=== PATIENT | female | born 1970 | race Caucasian/White ===

== ENCOUNTER 2020-05-30 09:56 | Outpatient (CLI) | payer OTHER, SELFPAY ==
--- NOTE | 2020-05-30 10:26 | EST_ITS ---
Patient Info Name: Marie Castro Age: 49 years : 1970 Gender: Female Ht: 60 in Wt: 104 lbs BSA: 1.41 m2 Exam Date: 05/30/2020 10:36 AM Exam Location: [facility] Stress Patient Status: Outpatient Admit Date: 05/30/2020 Staff Ordering Physician: Lorne Singh DO Attending Provider: oLrne Singh DO Exercise Technologist: Rebecca Mancera RDCS Exercise Physician: Devonte Segal DO Exam Type: CA stress test treadmill Study Info Indications R07.9 - Chest pain, unspecified A treadmill exercise stress test was performed. Summary 1. 1. Negative Miky exercise stress test for ischemic ST changes by ECG criteria. 2. 2. Good functional capacity, achieving 12 METs of workload. 3. 3. Appropriate HR response to exercise. 4. 4. Appropriate HR recovery at 1 minute post exercise. 5. 5. Baseline hypertension. 6. 6. No imaging with stress testing. 7. 7. Patient informed of the above results. Protocol: Miky Stress ECG Details Stage: REST Duration (min): 6 min : 15 sec Speed (mph): 0.0 Grade (%): 0 HR (bpm): 59 SBP (mmHg): 162 DBP (mmHg): 96 METS: --- Stage: REST Duration (min): 16 min : 57 sec Speed (mph): 0.0 Grade (%): 0 HR (bpm): 68 SBP (mmHg): 162 DBP (mmHg): 96 METS: --- Stage: STAGE 1 Duration (min): 1 min : 0 sec Speed (mph): 1.7 Grade (%): 10 HR (bpm): 87 SBP (mmHg): 162 DBP (mmHg): 96 METS: --- Stage: STAGE 1 Duration (min): 2 min : 0 sec Speed (mph): 1.7 Grade (%): 10 HR (bpm): 95 SBP (mmHg): 162 DBP (mmHg): 96 METS: --- Stage: STAGE 1 Duration (min): 3 min : 0 sec Speed (mph): 1.7 Grade (%): 10 HR (bpm): 94 SBP (mmHg): 157 DBP (mmHg): 85 METS: --- Stage: STAGE 2 Duration (min): 1 min : 0 sec Speed (mph): 2.5 Grade (%): 12 HR (bpm): 105 SBP (mmHg): 157 DBP (mmHg): 85 METS: --- Stage: STAGE 2 Duration (min): 2 min : 0 sec Speed (mph): 2.5 Grade (%): 12 HR (bpm): 113 SBP (mmHg): 144 DBP (mmHg): 82 METS: --- Stage: STAGE 2 Duration (min): 3 min : 0 sec Speed (mph): 2.5 Grade (%): 12 HR (bpm): 117 SBP (mmHg): 144 DBP (mmHg): 82 METS: --- Stage: STAGE 3 Duration (min): 1 min : 0 sec Speed (mph): 3.4 Grade (%): 14 HR (bpm): 126 SBP (mmHg): 174 DBP (mmHg): 93 METS: --- Stage: STAGE 3 Duration (min): 2 min : 0 sec Speed (mph): 3.4 Grade (%): 14 HR (bpm): 127 SBP (mmHg): 174 DBP (mmHg): 93 METS: --- Stage: STAGE 3 Duration (min): 3 min : 0 sec Speed (mph): 3.4 Grade (%): 14 HR (bpm): 130 SBP (mmHg): 103 DBP (mmHg): 85 METS: --- Stage: STAGE 4 Duration (min): 1 min : 0 sec Speed (mph): 4.2 Grade (%): 16 HR (bpm): 156 SBP (mmHg): 103 DBP (mmHg): 55 METS: --- Stage: STAGE 4 Duration (min)
== END 2020-05-30 09:57 | disposition home or self-care (01) ==
PROVIDERS: PCP Internal Medicine; Visit Provider Internal Medicine
DX: E78.00 Pure hypercholesterolemia, unspecified (principal); R07.9 Chest pain, unspecified; I10 Essential (primary) hypertension
CPT/HCPCS: 93017

== ENCOUNTER → 2022-01-19 02:18 | Outpatient (CLI) | payer OTHER, SELFPAY ==
[2022-01-19 11:31] LABS: SARS-CoV-2 RNA PCR Negative
== END ==
PROVIDERS: PCP Internal Medicine; Visit Provider Internal Medicine Gastroenterology
DX: Z01.812 Encounter for preprocedural laboratory examination (principal); Z20.822 Contact with and (suspected) exposure to COVID-19
CPT/HCPCS: C9803; U0003; U0005

== ENCOUNTER 2022-01-19 08:35 | Outpatient (CLI) | payer OTHER, SELFPAY ==
--- NOTE | ~2022-01-19 | XR_ITS ---
XR lumbar spine min 4V DATE: 01/19/2022 08:58 INDICATION: Low back pain TECHNIQUE: AP, lateral, bilateral oblique views, coned lateral lumbosacral view COMPARISON: None FINDINGS: Normal alignment lumbar spine. There is moderate prominent degenerative disease at L2-3 and L3-4 and mild degenerative disease at th e remaining lumbosacral interspaces. No fracture or bone destruction is evident. Included lower thoracic and lumbar pedicles are intact. There is severe thinning or possible interruption of the pars interarticularis at L5 bilaterally, but no spondylolisthesis. The sacroiliac joints appear normal. Status post cholecystectomy. IMPRESSION: Degenerative disc disease, most pronounced at L2-3 and L3-4 Very thin or interrupted pars interarticularis at L5 Reviewed, dictated and finalized at location A.
[2022-01-19 09:50] LABS: Erythrocyte Sedimentation Rate 17 mm/hr (0-20)
== END 2022-01-19 08:36 | disposition home or self-care (01) ==
LOC: ANHIMG 08:38
PROVIDERS: PCP Internal Medicine; Visit Provider Internal Medicine
DX: M54.50 Low back pain, unspecified (principal); M51.36 Other intervertebral disc degeneration, lumbar region
CPT/HCPCS: 36415; 72110; 85652

== ENCOUNTER 2022-01-22 00:59 | Day surgery (SDC) | payer OTHER, SELFPAY ==
[2022-01-08 15:03] VITALS: BMI 20.6
[2022-01-22 06:40] VITALS: BP 159/95; PULSE 68; RESP 18; TEMP 36.2; O2SAT 100; BMI 21.2
--- NOTE | 2022-01-22 06:56 | WPDANESEPPF ---
Anes - Initial Pre Proc Eval Procedure: Operation Date: 01/22/22 08:00 Proposed Procedures p Screening Colonoscopy - Maurice Hilario MD Date/Time: 01/22/22 06:56 Surgeon: Maurice Hilario MD Pre Op Diagnosis: neoplasm screening Patient Data Age: 51 Gender: F Height: 1.52 m Weight: 49.2 kg Last Vital Signs Temp 36.2 C L 01/22/22 06:40 Pulse 68 01/22/22 06:40 Resp 18 01/22/22 06:40 BP 159/95 H 01/22/22 06:40 Pulse Ox 100 01/22/22 06:40 Allergies Allergy/AdvReac Type Severity Reaction Status Date / Time albuterol Allergy Intermediate INCREASED Verified 01/22/22 06:45 HEART RATE, DIFFICULTY BREATHING hydrocodone Allergy Intermediate RASH AND Verified 01/22/22 06:45 NAUSEA morphine Allergy Intermediate ITCHING Verified 01/22/22 06:45 AND VOMITING fish oil Allergy Mild Bladder Verified 01/22/22 06:45 pain acetaminophen [From Vicodin] Allergy Shortness Verified 01/22/22 06:45 of breath azithromycin Allergy Nausea Verified 01/22/22 06:45 [From Zithromax Z-Meir] estrogens, conjugated Allergy Pancreatiti Verified 01/22/22 06:45 [From Premarin] s Contrast Media Allergy Severe SEVERE Uncoded 01/08/20 13:07 PAIN; HAD SEVERE PANCREATITIS;BREATHING DIFFICULTY Home Medications Medication Instructions Recorded Confirmed Type aspirin 81 mg tablet,delayed 81 mg PO DAILY 01/08/20 01/22/22 History release cannabidiol 100 mg/mL oral solution mg PO BID PRN ml 01/08/20 12/01/21 History diphenhydramine HCl 25 mg capsule 25 mg PO Q6H PRN 04/16/20 01/22/22 History duloxetine 30 mg capsule,delayed 30 mg PO DAILY #90 cap 10/10/21 01/22/22 Rx release lovastatin 40 mg tablet 40 mg PO QPM #90 tablet 10/20/21 01/22/22 Rx ibuprofen See Rx Instructions .ROUTE 01/08/22 01/22/22 History .COMPLEX PRN diazepam 2 mg tablet 2 mg PO BID PRN #60 tablet 01/21/22 01/22/22 Rx Patient hx anesthesia problems: none Family hx anesthesia problems: other (slow to awaken) Results Review: All pre-operative results and documents have been reviewed as part of the pre-operative evaluation. [facility] Past Medical History Medical History Anxiety Asthma Breast lump in female Degenerative disc disease GERD (gastroesophageal reflux disease) Hypercholesterolemia Hypertension Hypothyroidism Interstitial cystitis Lumbago MDD (major depressive disorder) Migraine Miscarriage Recurrent UTI (urinary tract infection) Seasonal allergies Tremors of nervous system Surgical History Surgical History H/O: hysterectomy Family History Family History Father Cerebrovascular accident Carcinoma of colon DVT (deep venous thrombosis) Mother Family history of kidney disease Family history of lung cancer Acute myocardial infarction Breast cancer Atrial fibrillation Daughter CHF (congestive heart failure) Other FH: kidney cancer Social History Social History Years smoked: 30 Smoking status: Former smoker Tobacco type: cigarettes and e-cigarettes/vaping Smoking end date: 09/27/10 Alcohol intake: never Substance use: current Substance use type: marijuana Living arrangements: with family Spiritual care concerns: No Anes - Eval Final PreProcedure Day of Procedure 01/22/22 06:56 Patient weight: normal Heart: regular rate and rhythm Lungs: decreased breath sounds Airway: Mallampati scale class II Neurological: alert and oriented Last oral intake: >/= 8 hours ASA classification: III Emergent: no Anesthetic plan: proceed Anesthesia type and monitoring: general GIVS and standard monitoring Results Review: All pre-operative results and documents have been reviewed as part of the pre-operative evalua
[2022-01-22] MEDS: LACTATED RINGERS 1,000 ML 150 ML IV CONT (06:59)
--- NOTE | 2022-01-22 07:17 | WPDGICN ---
Assessment and Plan Assessment and plan (1) Family hx of colon cancer: Code(s): Z80.0 - Family history of malignant neoplasm of digestive organs Status: Acute Assessment and Plan: Patient has a strong family history of colon cancer with cancer in both her father brother in his aunt. Plan is for surveillance colonoscopy now and at 3-4 year intervals in the future. (2) History of colon polyps: Code(s): Z86.010 - Personal history of colonic polyps Status: Acute Assessment and Plan: Patient has had colon polyps on previous colonoscopy. Most recent colonoscopy 2019. Plan is for surveillance colonoscopy now in every 3-4 years in the future. GI Consult Note Consult date/time: 01/22/22 07:17 HPI: Marie Castro is a 51 year old female Presents for screening colonoscopy. Patient has a strong family history of colon cancer. Her father brother and paternal aunt all of had colon cancer. Patient reports her last colonoscopy in 2019 revealed colon polyps as well. Patient presents today for screening colonoscopy. She reports that her current weight appetite and bowel movements are normal. She denies abdominal pain. She has had no bleeding. Her weight remains stable. Review of Systems Review of Systems: All systems reviewed & are unremarkable except as noted in HPI and below PMFSH Past Medical History Medical History Anxiety Asthma Breast lump in female Degenerative disc disease GERD (gastroesophageal reflux disease) Hypercholesterolemia Hypertension Hypothyroidism Interstitial cystitis Lumbago MDD (major depressive disorder) Migraine Miscarriage Recurrent UTI (urinary tract infection) Seasonal allergies Tremors of nervous system Surgical History Surgical History H/O: hysterectomy Family History Family History Father Cerebrovascular accident Carcinoma of colon DVT (deep venous thrombosis) Mother Family history of kidney disease Family history of lung cancer Acute myocardial infarction Breast cancer Atrial fibrillation Daughter CHF (congestive heart failure) Other FH: kidney cancer Social History Social History Years smoked: 30 Smoking status: Former smoker Tobacco type: cigarettes and e-cigarettes/vaping Smoking end date: 09/27/10 Alcohol intake: never Substance use: current Substance use type: marijuana Living arrangements: with family Spiritual care concerns: No Meds Home Medications and Allergies Home Medications Medication Instructions Recorded Confirmed Type aspirin 81 mg tablet,delayed 81 mg PO DAILY 01/08/20 01/22/22 History release cannabidiol 100 mg/mL oral solution mg PO BID PRN ml 01/08/20 12/01/21 History diphenhydramine HCl 25 mg capsule 25 mg PO Q6H PRN 04/16/20 01/22/22 History duloxetine 30 mg capsule,delayed 30 mg PO DAILY #90 cap 10/10/21 01/22/22 Rx release lovastatin 40 mg tablet 40 mg PO QPM #90 tablet 10/20/21 01/22/22 Rx ibuprofen See Rx Instructions .ROUTE 01/08/22 01/22/22 History .COMPLEX PRN diazepam 2 mg tablet 2 mg PO BID PRN #60 tablet 01/21/22 01/22/22 Rx Allergies Allergy/AdvReac Type Severity Reaction Status Date / Time albuterol Allergy Intermediate INCREASED Verified 01/22/22 06:45 HEART RATE, DIFFICULTY BREATHING hydrocodone Allergy Intermediate RASH AND Verified 01/22/22 06:45 NAUSEA morphine Allergy Intermediate ITCHING Verified 01/22/22 06:45 AND VOMITING fish oil Allergy Mild Bladder Verified 01/22/22 06:45 pain acetaminophen [From Vicodin] Allergy Shortness Verified 01/22/22 06:45 of breath azithromycin Allergy Nausea Verified 01/22/22 06:45 [From Zithromax Z-Meir] estrogens, conjugated Aller
[2022-01-22] MEDS: SIMETHICONE ORAL SUSPENSION 20 MG/0.3 ML 30 ML BOTTLE 0.6 ML IRRIGATION (08:12)
[2022-01-22 08:26] VITALS: BP 139/84; PULSE 75; RESP 17; O2SAT 100
[2022-01-22 08:36] VITALS: BP 144/87; PULSE 65; RESP 25; O2SAT 100
[2022-01-22 08:46] VITALS: BP 150/93; PULSE 63; RESP 21; O2SAT 100
== END 2022-01-22 08:51 | disposition home or self-care (01) ==
PROVIDERS: PCP Internal Medicine; Visit Provider Internal Medicine Gastroenterology
PROC: 0DJD8ZZ Inspection of Lower Intestinal Tract, Via Natural or Artificial Opening Endoscopic (ICD-10-PCS; CPT 45378; principal; 2022-01-22 08:00)
DX: Z12.11 Encounter for screening for malignant neoplasm of colon (principal); K64.8 Other hemorrhoids; Z86.010 Personal history of colon polyps; Z80.0 Family history of malignant neoplasm of digestive organs; I10 Essential (primary) hypertension; E78.00 Pure hypercholesterolemia, unspecified; E03.9 Hypothyroidism, unspecified; K21.9 Gastro-esophageal reflux disease without esophagitis; F41.8 Other specified anxiety disorders; J45.909 Unspecified asthma, uncomplicated; F12.90 Cannabis use, unspecified, uncomplicated; Z87.891 Personal history of nicotine dependence; Z79.82 Long term (current) use of aspirin
CPT/HCPCS: 45378; J2704; J7120

== ENCOUNTER 2022-05-08 12:23 | Outpatient (CLI) | payer OTHER, SELFPAY ==
[2022-05-08 18:52] LABS: Basophils Absolute Auto 0.1 K/mm3 (0.0-0.1); Basophils Percent Auto 1.2 % (0.2-1.2); Eosinophils Absolute Auto 0.1 K/mm3 (0-0.3); Eosinophils Percent Auto 1.7 % (0-4.4); Hematocrit 42.3 % (37.0-47.0); Hemoglobin 13.7 g/dL (12.0-15.0); Immature Granulocyte Absolute 0.01 K/mm3 (0.00-0.031); Immature Granulocyte Percent A 0.2 % (0-0.5); Lymphocytes Absolute Auto 2.74 K/mm3 (0.9-3.2); Lymphocytes Percent Auto 45.6 % (18.3-44.2); Mean Corpuscular HGB Conc 32.4 g/dl (32-36); Mean Corpuscular Hemoglobin 28.9 pg (26-34); Mean Corpuscular Volume 89.2 fl (80-100); Mean Platelet Volume 11.2 fl (7.4-10.4); Monocytes Absolute Auto 0.4 K/mm3 (0.1-0.6); Monocytes Percent Auto 7.3 % (2.6-8.5); Neutrophils Absolute Auto 2.7 K/mm3 (1.3-6.7); Platelet Count Result 228 k/mm3 (150-375); Red Blood Count 4.74 M/mm3 (4.2-5.4); Red Cell Distribution Width 13.2 % (11.5-14.5)
[2022-05-08 19:34] LABS: Vitamin D 25 Hydroxy 59.8 ng/mL
[2022-05-08 19:38] LABS: Alanine Aminotransferase 16 U/L (6-35); Albumin Level 4.8 g/dL (3.5-5.1); Alkaline Phosphatase 59 U/L (38-126); Anion Gap 6 mmol/L (8-16); Aspartate Amino Transferase 39 U/L (14-36); Bilirubin,Total 0.8 mg/dL (0.2-1.3); Blood Urea Nitrogen 16 mg/dL (7-17); Calcium 9.7 mg/dL (8.4-10.2); Carbon Dioxide 29 mmol/L (22-30); Chloride 100 mmol/L (98-107); Cholesterol 228 mg/dL (0-200); Estimated Glomerular Filt Rate > 60; Glucose 95 mg/dL (65-110); HDL Direct 38 mg/dL; Potassium 4.6 mmol/L (3.4-5.0); Sodium 135 mmol/L (137-145); Triglycerides 199 mg/dL (<150)
[2022-05-08 19:50] LABS: LDL Cholesterol Direct 105 mg/dL
== END 2022-05-08 12:24 | disposition home or self-care (01) ==
LOC: ANHGOSHLAB 12:24
PROVIDERS: PCP Internal Medicine; Visit Provider Clinical Nurse Specialist
DX: Z13.228 Encounter for screening for other metabolic disorders (principal); E55.9 Vitamin D deficiency, unspecified; F41.9 Anxiety disorder, unspecified; E78.00 Pure hypercholesterolemia, unspecified
CPT/HCPCS: 36415; 80053; 80061; 82306; 84443; 85025

== ENCOUNTER 2022-05-12 13:54 | Outpatient (CLI) | payer OTHER, SELFPAY ==
--- NOTE | ~2022-05-12 | MR_ITS ---
EXAMINATION: MR brain/brain stem wo/w con DATE: 05/12/2022 15:20 INDICATION: Headache. TECHNIQUE: Magnetic resonance imaging (MRI) of the brain and brainstem was performed without and with 9 mL MultiHance intravenous contrast. COMPARISON: None. FINDINGS: There are scattered areas of nonspecific increased T2-weighted signal intensity in the cere bral white matter, which is within normal limits for the patient's age. There is no intracranial hemo rrhage, acute infarction, or abnormal intracranial mass lesion. The ventricles are normal in size. Th e paranasal sinuses are clear. The orbits are normal. The mastoid air cells are normal. IMPRESSION: 1. Normal aging brain. Reviewed, dictated and finalized at location A. IMPRESSION: 1. Normal aging brain.
--- NOTE | ~2022-05-12 | US_ITS ---
US thyroid INDICATION: Dysphagia TECHNIQUE: Real-time sonographic images of the thyroid gland were obtained. COMPARISON: No prior studies for comparison. FINDINGS: The right thyroid lobe measures 4 x 1.1 x 1.2 cm. The left thyroid lobe measures 3.5 x 1 x 1.4 cm. There is normal echotexture and echogenicity throughout the thyroid gland. No discrete nodul es identified. Normal vascular flow is present. IMPRESSION: 1. Normal thyroid without discrete nodule or abnormal vascularity. Reviewed, dictated and finalized at location B.
== END 2022-05-12 13:55 | disposition home or self-care (01) ==
PROVIDERS: PCP Internal Medicine; Visit Provider Clinical Nurse Specialist
DX: E03.9 Hypothyroidism, unspecified (principal); R13.10 Dysphagia, unspecified; R51.9 Headache, unspecified
CPT/HCPCS: 70553; 76536; A9577

== ENCOUNTER 2022-06-02 00:50 | Day surgery (SDC) | payer OTHER, SELFPAY ==
[2022-05-18 15:46] VITALS: BMI 20.6
[2022-06-02 09:14] VITALS: BP 157/66; PULSE 60; RESP 16; TEMP 36.5; O2SAT 99; BMI 21.9
[2022-06-02] MEDS: LACTATED RINGERS 1,000 ML 150 ML IV CONT (09:23)
--- NOTE | 2022-06-02 09:34 | WPDANESEPPF ---
Anes - Initial Pre Proc Eval Procedure: Operation Date: 06/02/22 10:30 Proposed Procedures p Esophagogastroduodenoscopy - Maurice Hilario MD Date/Time: 06/02/22 09:34 Surgeon: Maurice Hilario MD Pre Op Diagnosis: dysphagia Patient Data Age: 51 Gender: F Height: 1.52 m Weight: 51 kg Last Vital Signs Temp 36.5 C 06/02/22 09:14 Pulse 60 06/02/22 09:14 Resp 16 06/02/22 09:14 BP 157/66 H 06/02/22 09:14 Pulse Ox 99 06/02/22 09:14 O2 Del Method Room Air 06/02/22 09:14 Allergies Allergy/AdvReac Type Severity Reaction Status Date / Time Iodinated Contrast Media Allergy Severe Difficulty Verified 06/02/22 09:13 Breathing albuterol Allergy Intermediate INCREASED Verified 06/02/22 09:13 HEART RATE, DIFFICULTY BREATHING hydrocodone Allergy Intermediate RASH AND Verified 06/02/22 09:13 NAUSEA morphine Allergy Intermediate ITCHING Verified 06/02/22 09:13 AND VOMITING fish oil Allergy Mild Bladder Verified 06/02/22 09:13 pain acetaminophen [From Vicodin] Allergy Shortness Verified 06/02/22 09:13 of breath azithromycin Allergy Nausea Verified 06/02/22 09:13 [From Zithromax Z-Meir] estrogens, conjugated Allergy Pancreatiti Verified 06/02/22 09:13 [From Premarin] s Contrast Media Allergy Severe SEVERE Uncoded 06/02/22 09:13 PAIN; HAD SEVERE PANCREATITIS;BREATHING DIFFICULTY Home Medications Medication Instructions Recorded Confirmed Type aspirin 81 mg tablet,delayed 81 mg PO DAILY 01/08/20 06/02/22 History release (Adult Low Dose Aspirin) cannabidiol 100 mg/mL oral solution 10 mg PO BID PRN Pain 01/08/20 06/02/22 History diphenhydramine HCl 25 mg capsule 25 mg PO Q6H PRN Sleep 04/16/20 06/02/22 History (Benadryl) diazepam 2 mg tablet 1 mg PO BID PRN anxiety #30 tabs 04/16/22 06/02/22 Rx ibuprofen 800 mg tablet 800 mg .Route .qd PRN Pain #30 tabs 04/16/22 06/02/22 Rx duloxetine 30 mg capsule,delayed 30 mg PO DAILY #90 caps 05/03/22 06/02/22 Rx release lovastatin 40 mg tablet 40 mg PO QPM #90 tabs 05/03/22 06/02/22 Rx Patient hx anesthesia problems: none Family hx anesthesia problems: none Results Review: All pre-operative results and documents have been reviewed as part of the pre-operative evaluation. [facility] Past Medical History Medical History Anxiety Asthma Breast lump in female Degenerative disc disease GERD (gastroesophageal reflux disease) Hypercholesterolemia Hypertension Hypothyroidism Interstitial cystitis Lumbago MDD (major depressive disorder) Migraine Miscarriage Recurrent UTI (urinary tract infection) Seasonal allergies Tremors of nervous system Surgical History Surgical History H/O: hysterectomy Family History Family History Father Cerebrovascular accident Carcinoma of colon DVT (deep venous thrombosis) Mother Family history of kidney disease Family history of lung cancer Acute myocardial infarction Breast cancer Atrial fibrillation Daughter CHF (congestive heart failure) Other FH: kidney cancer Social History Social History Years smoked: 30 Smoking status: Former smoker Tobacco type: e-cigarettes/vaping Smoking end date: 09/27/10 Alcohol intake: never Substance use: current Substance use type: marijuana Other substance usage details: medical marijuana for pain Living arrangements: with family Spiritual care concerns: No Anes - Eval Final PreProcedure Day of Procedure 06/02/22 09:34 Patient weight: normal Heart: regular rate and rhythm Lungs: clear to auscultation Airway: Mallampati scale class II Neurological: alert and oriented ASA classification: III Emergent: no Anesthetic plan: proceed Anesthesia
--- NOTE | 2022-06-02 09:47 | PM.IMHP ---
H&P: HPI History of Present Illness Date/Time: 06/02/22 09:47 Chief Complaint: Dysphagia Narrative: this is a 51-year-old white female patient presents for EGD. She reports difficulty swallowing for last 2-3 months. Sometimes will choke on foods. This occurs with both solids and liquids. She reports a rather chronic epigastric pain that has developed after having had pancreatitis in the past. She states been present for 10 years. She previously tried omeprazole but felt this made the symptoms worse. She states most other medicines including milk of magnesia and Pepto-Bismol also intensified this pain therefore she does not take any significant antacids. It is uncertain whether these make an benefit. She denies any weight loss or bleeding. An EGD is requested because of difficulty swallowing. Review of Systems Review of Systems: Review of systems noncontributory. [facility] Past Medical History Medical History Anxiety Asthma Breast lump in female Degenerative disc disease GERD (gastroesophageal reflux disease) Hypercholesterolemia Hypertension Hypothyroidism Interstitial cystitis Lumbago MDD (major depressive disorder) Migraine Miscarriage Recurrent UTI (urinary tract infection) Seasonal allergies Tremors of nervous system Surgical History Surgical History H/O: hysterectomy Family History Family History Father Cerebrovascular accident Carcinoma of colon DVT (deep venous thrombosis) Mother Family history of kidney disease Family history of lung cancer Acute myocardial infarction Breast cancer Atrial fibrillation Daughter CHF (congestive heart failure) Other FH: kidney cancer Social History Social History Years smoked: 30 Smoking status: Former smoker Tobacco type: e-cigarettes/vaping Smoking end date: 09/27/10 Alcohol intake: never Substance use: current Substance use type: marijuana Other substance usage details: medical marijuana for pain Living arrangements: with family Spiritual care concerns: No Meds Home Medications and Allergies Home Medications Medication Instructions Recorded Confirmed Type aspirin 81 mg tablet,delayed 81 mg PO DAILY 01/08/20 06/02/22 History release (Adult Low Dose Aspirin) cannabidiol 100 mg/mL oral solution 10 mg PO BID PRN Pain 01/08/20 06/02/22 History diphenhydramine HCl 25 mg capsule 25 mg PO Q6H PRN Sleep 04/16/20 06/02/22 History (Benadryl) diazepam 2 mg tablet 1 mg PO BID PRN anxiety #30 tabs 04/16/22 06/02/22 Rx ibuprofen 800 mg tablet 800 mg .Route .qd PRN Pain #30 tabs 04/16/22 06/02/22 Rx duloxetine 30 mg capsule,delayed 30 mg PO DAILY #90 caps 05/03/22 06/02/22 Rx release lovastatin 40 mg tablet 40 mg PO QPM #90 tabs 05/03/22 06/02/22 Rx Allergies Allergy/AdvReac Type Severity Reaction Status Date / Time Iodinated Contrast Media Allergy Severe Difficulty Verified 06/02/22 09:13 Breathing albuterol Allergy Intermediate INCREASED Verified 06/02/22 09:13 HEART RATE, DIFFICULTY BREATHING hydrocodone Allergy Intermediate RASH AND Verified 06/02/22 09:13 NAUSEA morphine Allergy Intermediate ITCHING Verified 06/02/22 09:13 AND VOMITING fish oil Allergy Mild Bladder Verified 06/02/22 09:13 pain acetaminophen [From Vicodin] Allergy Shortness Verified 06/02/22 09:13 of breath azithromycin Allergy Nausea Verified 06/02/22 09:13 [From Zithromax Z-Meir] estrogens, conjugated Allergy Pancreatiti Verified 06/02/22 09:13 [From Premarin] s Contrast Media Allergy Severe SEVERE Uncoded 06/02/22 09:13 PAIN; HAD SEVERE PANCREATITIS;BREATHING DIFFICULTY Vital Signs Vital Signs - 24 hr 06/02/22 09:14 Temperature 97.7 F
[2022-06-02 10:09] VITALS: BP 130/87; PULSE 64; RESP 20; O2SAT 100
[2022-06-02 10:19] VITALS: BP 138/95; PULSE 62; RESP 20; O2SAT 100
[2022-06-02 10:29] VITALS: BP 138/88; PULSE 55; RESP 20; O2SAT 99
== END 2022-06-02 10:36 | disposition home or self-care (01) ==
PROVIDERS: PCP Internal Medicine; Visit Provider Internal Medicine Gastroenterology
PROC: 0DJ08ZZ Inspection of Upper Intestinal Tract, Via Natural or Artificial Opening Endoscopic (ICD-10-PCS; CPT 43235; principal; 2022-06-02 10:30)
DX: R13.19 Other dysphagia (principal); R10.13 Epigastric pain; F41.9 Anxiety disorder, unspecified; J45.909 Unspecified asthma, uncomplicated; K21.9 Gastro-esophageal reflux disease without esophagitis; I10 Essential (primary) hypertension; F32.9 Major depressive disorder, single episode, unspecified; Z87.891 Personal history of nicotine dependence; F12.90 Cannabis use, unspecified, uncomplicated; Z79.82 Long term (current) use of aspirin; N30.10 Interstitial cystitis (chronic) without hematuria; Z80.0 Family history of malignant neoplasm of digestive organs; E03.9 Hypothyroidism, unspecified; R25.1 Tremor, unspecified
CPT/HCPCS: 43239; 43450; 87081; J2704; J7120

== ENCOUNTER 2022-09-30 09:47 | Outpatient (CLI) | payer OTHER, SELFPAY ==
--- NOTE | ~2022-09-30 | XR_ITS ---
Lumbosacral Spine: AP and lateral views Clinical History: Pain Findings: The normal lordotic curve is maintained. The vertebral bodies and posterior elements are i ntact. The intervertebral disc spaces are preserved. Mild facet joint degenerative changes are prese nt throughout the lumbar spine. The sacroiliac joints are normally outlined. Impression: Mild degenerative change, as above. Reviewed, dictated and finalized at location . LE APPLICATION ENGINEER Impression: Mild degenerative change, as above.
--- NOTE | ~2022-09-30 | XR_ITS ---
Left Hand Technique: PA and lateral views were obtained. Clinical History: Thumb pain Findings: No acute fracture or dislocation is seen. Osseous alignment is anatomic. Joint spaces are p reserved. Soft tissues are unremarkable. Impression: Unremarkable left hand. Reviewed, dictated and finalized at location M. RY ENGRAVER Impression: Unremarkable left hand.
[2022-09-30 18:58] LABS: Alanine Aminotransferase 20 U/L (6-35); Albumin Level 4.7 g/dL (3.5-5.1); Alkaline Phosphatase 60 U/L (38-126); Anion Gap 7 mmol/L (8-16); Aspartate Amino Transferase 24 U/L (14-36); Bilirubin,Total 0.3 mg/dL (0.2-1.3); Blood Urea Nitrogen 15 mg/dL (7-17); Calcium 9.3 mg/dL (8.4-10.2); Carbon Dioxide 28 mmol/L (22-30); Chloride 102 mmol/L (98-107); Estimated Glomerular Filt Rate > 60; Glucose 81 mg/dL (65-110); Potassium 4.5 mmol/L (3.4-5.0); Sodium 137 mmol/L (137-145)
[2022-09-30 19:49] LABS: Basophils Absolute Auto 0.1 K/mm3 (0.0-0.1); Basophils Percent Auto 1.1 % (0.2-1.2); Eosinophils Absolute Auto 0.2 K/mm3 (0-0.3); Eosinophils Percent Auto 3.4 % (0-4.4); Hematocrit 42.9 % (37.0-47.0); Immature Granulocyte Absolute 0.01 K/mm3 (0.00-0.031); Immature Granulocyte Percent A 0.2 % (0-0.5); Lymphocytes Absolute Auto 2.57 K/mm3 (0.9-3.2); Lymphocytes Percent Auto 41.9 % (18.3-44.2); Mean Corpuscular HGB Conc 32.6 g/dl (32-36); Mean Corpuscular Hemoglobin 28.7 pg (26-34); Mean Corpuscular Volume 88.1 fl (80-100); Monocytes Absolute Auto 0.5 K/mm3 (0.1-0.6); Neutrophils Absolute Auto 2.8 K/mm3 (1.3-6.7); Neutrophils Percent Auto 45.4 % (45.5-73.1); Platelet Count Result 230 k/mm3 (150-375); Red Blood Count 4.87 M/mm3 (4.2-5.4); Red Cell Distribution Width 12.8 % (11.5-14.5); White Blood Count 6.1 K/mm3 (4.5-10.0)
[2022-09-30 20:35] LABS: Rheumatoid Factor < 8.6 IU/ML (<12)
[2022-09-30 21:03] LABS: Hemoglobin A1C 5.5 % (<5.7)
[2022-09-30 21:15] LABS: Erythrocyte Sedimentation Rate 12 mm/hr (0-20)
[2022-10-04 09:07] LABS: ANA Cascade Screen Negative (Negative)
== END 2022-09-30 09:48 | disposition home or self-care (01) ==
PROVIDERS: PCP Internal Medicine; Visit Provider Clinical Nurse Specialist
DX: M79.643 Pain in unspecified hand (principal); M48.061 Spinal stenosis, lumbar region without neurogenic claudication; M35.3 Polymyalgia rheumatica; E78.00 Pure hypercholesterolemia, unspecified; R73.9 Hyperglycemia, unspecified
CPT/HCPCS: 36415; 72100; 73120; 80053; 83036; 85025; 85652; 86038; 86430

== ENCOUNTER 2022-11-13 09:02 | Outpatient (CLI) | payer OTHER, SELFPAY ==
--- NOTE | ~2022-11-13 | MR_ITS ---
EXAMINATION: MR lumbar spine wo con DATE: 11/13/2022 10:52 INDICATION: Low back pain. TECHNIQUE: Magnetic resonance imaging (MRI) of the lumbar spine was performed without intravenous con trast. Sequences included sagittal T2-weighted FSE, sagittal T2-weighted FS FSE, sagittal T1-weighted FSE, and axial T2-weighted FSE. COMPARISON: Lumbar spine radiographs 09/30/22 FINDINGS: Bone alignment is normal. Vertebral body heights are normal. There is mildly decreased disc height at L3-L4 and L5-S1. The distal spinal cord signal intensity is normal. The conus medullaris i s at L1. The following disc levels are specifically discussed: L1-L2: The disc does not extend beyond the endplate margin. There is mild bilateral facet joint osteo arthritis. There is no neural foraminal stenosis. There is no central canal stenosis. L2-L3: The disc is bulging and has an annular fissure. There is mild bilateral facet joint osteoarthr itis. There is mild bilateral neural foraminal stenosis. There is mild central canal stenosis. L3-L4: The disc is bulging and has an annular fissure. There is moderate bilateral facet joint osteoa rthritis. There is mild bilateral neural foraminal stenosis. There is mild central canal stenosis. L4-L5: The disc is bulging. There is severe bilateral facet joint osteoarthritis. There is mild left neural foraminal stenosis. There is no central canal stenosis. L5-S1: The disc is bulging. There is moderate bilateral facet joint osteoarthritis. There is mild carlene ateral neural foraminal stenosis. There is mild central canal stenosis. IMPRESSION: 1. Mild lumbar spondylosis. Reviewed, dictated and finalized at location A. MANAGER IMPRESSION: 1. Mild lumbar spondylosis.
--- NOTE | 2022-11-13 11:00 | NEURO_ITS ---
Impression: # Complains of inability to bend thumbs at the joint intermittently. # Subtle sensory Carpal Tunnel Syndrome, right more than left. # Normal needle/EMG exam with no neurogenic changes. Motor Nerve Conduction Upper Extremities Median Nerve Conduction Velocity (m/sec) Terminal Latency (msec) Response Voltage(mV) Elbow-Wrist Wrist Elbow Wrist Right 55 2.9 5 3 Left 56 3.4 3 2 Ulnar Nerve Conduction Velocity (m/sec) Terminal Latency (msec) Response Voltage(mV) Above Elbow Below Elbow Wrist Above Elbow Below Elbow Wrist Right 54 2.3 5 6 Left 56 2.2 5 7 F-Wave Latency Median (ms) Ulnar (ms) Right 27.7 26.4 Left 27.8 26.7 Sensory Nerve Conduction Upper Extremities Median Nerve Stimulation Terminal Latency (msec) Wrist/Digit Response Voltage (uV) Wrist Right 4.3/4.7 10/6 Left 3.4/3.5 36/34 Ulnar Nerve Stimulation Terminal Latency (msec) Wrist/Digit Response Voltage (uV) Wrist Right 2.1 36 Left 2.2 56 Radial Nerve Terminal Latency (msec) Response Voltage(mV) Right 2.3 21 Left 2.0 35 Left Right Muscles Examined Fibrillation Fasciculation Scarcity Voltage Duration Left Right Left Right Left Right Left Right Left Right Deltoid Biceps X X Brachioradialis Triceps X X Pronator Teres X X Ext Indicis X X Ext Digitorum X X Abd Poll Brev X X 1st Dorsal Interosseus Paraspinals MTDD
== END 2022-11-13 09:03 | disposition home or self-care (01) ==
LOC: ANHNEURO 09:04
PROVIDERS: PCP Internal Medicine; Visit Provider Clinical Nurse Specialist
DX: M47.816 Spondylosis without myelopathy or radiculopathy, lumbar region (principal); R20.0 Anesthesia of skin
CPT/HCPCS: 72148; 95886; 95911

== ENCOUNTER 2023-01-13 01:17 | Day surgery (SDC) | payer OTHER, SELFPAY ==
--- NOTE | 2023-01-06 16:34 | SUR.PREOP ---
Report to the Outpatient Waiting Room, entrance under the green pavilion located off [facility], at time 0630 on date 01/13/23. Planned Procedure Time: 0830. Time changes happen often and if your time is changed the preop area will call you the afternoon before. - You and your visitor will be asked to self-screen and do not enter if you have any COVID symptoms. - A mask is optional within the hospital at this time. Patients may have clear liquids (water, carbonated beverages, clear teas, apple juice) until 3 hours prior to surgery with a maximum of 20 ounces. - NO CLEAR LIQUIDS AFTER 0530 - No food from midnight until time of surgery - Infants may have breast milk until 4 hours before surgery, formula 6 hours prior to surgery. - Children will be allowed to drink immediately following surgery. If applicable, please bring a bottle or sippy cup to assist with drinking. Juice, water, soda, and popsicles are readily available. For infants on formula, please bring formula the day of surgery. Pacifiers are allowed. Take the following medications with a SIP of water the morning of surgery: DIAZEPAM DO NOT STOP ANY OF YOUR OTHER PRESCRIPTION MEDICATIONS PRIOR TO SURGERY ?EXCEPT THE FOLLOWING Medications to discontinue per physician N/A Date to take last dose N/A Please no make-up, nail maltese, hairspray, perfume, deodorant, or body powder the day of surgery. No jewelry (including any body piercings) or valuables the day of surgery, leave them at home. Please take a shower or bath the night before, or the morning of, surgery with an antibacterial soap. Wear comfortable, loose fitting clothing. Children are encouraged to wear pajamas. - Jewelry must be removed prior to entering the operating room. Rings and piercings that are not removed may be cut off. - The hospital will not accept responsibility for valuables. - Please leave all valuables, including medications, at home the day of surgery. If you are going home after surgery, a licensed certified driver examiner must drive you home. - NO public transportation without another adult if you receive anesthesia. - We recommend that an adult stay with you for 24 hours following discharge. - We also recommend that you do not drive, make important decision, drink alcoholic beverages, or take any drugs that were not prescribed by your health care provider for at least 24 hours after your discharge time. For Pediatric surgeries, we recommend two adults accompany the child home. Follow any additional instructions given to you from your surgeon. If you or anyone in your household have experienced Covid symptoms in the past week, please notify your surgeon or the nurse liaison at the phone number below for possible testing. Telephone instructions given to CAROLINE TORRES and asked if any additional questions and then verbalized understanding. Patient advised to call surgeon office or pre surgery nurse liaison [phone] if any additional questions.
[2023-01-06 16:43] VITALS: BMI 21.5
[2023-01-13 06:43] VITALS: BP 141/82; PULSE 59; RESP 16; TEMP 36.1; O2SAT 100
[2023-01-13] MEDS: LACTATED RINGERS 1,000 ML 30 ML IV CONT (07:16)
--- NOTE | 2023-01-13 07:21 | WPDHPUPDATE1 ---
History and Physical Update Update Date/Time: 01/13/23 07:21 History and Physical has been reviewed, including an updated exam of the patient. There are NO changes in the patient's condition. Risks, benefits, and alternatives have been discussed and questions answered. Patient agrees to proceed with procedure.
--- NOTE | 2023-01-13 08:09 | WPDANESEPPF ---
Anes - Initial Pre Proc Eval Procedure: Operation Date: 01/13/23 08:30 Proposed Procedures p Left Open Carpal Tunnel Release, - Marcio Lombardo MD s Release Left Trigger Thumb - Marcio Lombardo MD Date/Time: 01/13/23 08:09 Surgeon: Marcio Lombardo MD Pre Op Diagnosis: left carpal tunnel syndrome,left trigger thumb Patient Data Age: 52 Gender: F Height: 1.52 m Weight: 53 kg Last Vital Signs Temp 96.9 F L 01/13/23 06:43 Pulse 59 L 01/13/23 06:43 Resp 16 01/13/23 06:43 BP 141/82 H 01/13/23 06:43 Pulse Ox 100 01/13/23 06:43 O2 Del Method Room Air 01/13/23 06:43 Allergies Allergy/AdvReac Type Severity Reaction Status Date / Time Iodinated Contrast Media Allergy Severe Difficulty Verified 01/06/23 16:22 Breathing albuterol Allergy Intermediate INCREASED Verified 01/06/23 16:22 HEART RATE, DIFFICULTY BREATHING hydrocodone Allergy Intermediate RASH AND Verified 01/06/23 16:22 NAUSEA morphine Allergy Intermediate ITCHING Verified 01/06/23 16:22 AND VOMITING fish oil Allergy Mild Bladder Verified 01/06/23 16:22 pain azithromycin Allergy Nausea Verified 01/06/23 16:22 [From Zithromax Z-Meir] estrogens, conjugated Allergy Pancreatiti Verified 01/06/23 16:22 [From Premarin] s Contrast Media Allergy Severe SEVERE Uncoded 01/06/23 16:22 PAIN; HAD SEVERE PANCREATITIS;BREATHING DIFFICULTY Home Medications Medication Instructions Recorded Confirmed Type aspirin 81 mg tablet,delayed 81 mg PO DAILY 01/08/20 01/06/23 History release (Adult Low Dose Aspirin) diphenhydramine HCl 25 mg capsule 25 mg PO Q6H PRN Sleep 04/16/20 01/06/23 History (Benadryl) lovastatin 40 mg tablet 40 mg PO QPM #90 tabs 05/03/22 01/06/23 Rx diazepam 2 mg tablet 1 mg PO BID PRN anxiety #60 tabs 12/07/22 01/06/23 Rx Patient hx anesthesia problems: post op nausea/vomiting Family hx anesthesia problems: none Results Review: All pre-operative results and documents have been reviewed as part of the pre-operative evaluation. [facility] Past Medical History Medical History Anxiety Asthma Breast lump in female Degenerative disc disease GERD (gastroesophageal reflux disease) Hypercholesterolemia Hypertension Hypothyroidism Interstitial cystitis Lumbago MDD (major depressive disorder) Migraine Miscarriage Recurrent UTI (urinary tract infection) Seasonal allergies Tremors of nervous system Trigger finger of both hands Surgical History Surgical History H/O: hysterectomy Family History Family History Father Cerebrovascular accident Carcinoma of colon DVT (deep venous thrombosis) Mother Family history of kidney disease Family history of lung cancer Acute myocardial infarction Breast cancer Atrial fibrillation Daughter CHF (congestive heart failure) Other FH: kidney cancer Social History Social History Years smoked: 32 Smoking status: Former smoker Tobacco type: cigarettes and e-cigarettes/vaping Smoking end date: 09/27/10 Alcohol intake: never Substance use: current Substance use type: marijuana Other substance usage details: medical marijuana for pain- DAILY Lack of Transportation: No Lack of Food: Never True Current Housing: I Have Housing Concerned About Future Housing: No Difficulty Paying Gas/Electric Bills: No Difficulty Paying for Meds: No Currently Unemployed: No Education: Trade/Vocational Certificate Difficulty w/ Childcare or Family Care: No Living arrangements: with family Spiritual care concerns: No Anes - Eval Final PreProcedure Day of Procedure 01/13/23 08:09 Patient weight: normal Heart: regular rate and rhythm Lungs: clear to auscultati
[2023-01-13] MEDS: LIDO 1%/EPINEPHRINE 1:100,000 50 ML VIAL INFILTRATE (08:30)
[2023-01-13 09:15] VITALS: BP 115/67; PULSE 74; RESP 14; O2SAT 99
[2023-01-13 09:30] VITALS: BP 121/68; PULSE 55; RESP 16
--- NOTE | 2023-01-13 09:35 | W.PM.PROC2 ---
Procedure Note - Detailed Date of Procedure 01/13/23 Pre-op Diagnosis left carpal tunnel syndrome,left trigger thumb Post-op Diagnosis Same Procedure Performed The open carpal tunnel release and a left trigger thumb release Surgeon Marcio Lombardo MD Anesthesia MAC Description of Procedure The left carpal tunnel and left trigger thumb sites were marked on the patient in the holding with her consent. She was taken to the operating room where she was placed supine on the operating table. She was given IV sedation. The left upper extremity was prepped and draped in usual fashion. A tourniquet was applied. The 2 sites were infiltrated with 1% lidocaine with epinephrine. The tourniquet was inflated to 250 mmHg. The incision for the carpal tunnel was done 1st was through an incision and blunt dissection through the subcutaneous tissue. The palmar fascia and transverse retinaculum were incised with a 15. Blade. Under 3 point retraction the ligament was divided distally and proximally. No unusual anatomy was noted. Attention was turned to the base of the thumb with the transverse incision was made at the metacarpal digital crease. Blunt dissection revealed the A1 carly. This was incised with a 15 blade. The release was completed with scissors for complete release. I was able to pull the tendon out of the wound to examined it. There did not appear to be any additional constriction. Both wounds were closed with interrupted 5 0 nylon suture and a small bandage was applied. The tourniquet was released at the time of the closure. Estimated Blood Loss -1.0 Drains No Packing No Pathology None sent Complications No immediate complications Condition Stable Disposition Same day
== END 2023-01-13 09:53 | disposition home or self-care (01) ==
PROVIDERS: PCP Internal Medicine; Visit Provider Plastic Surgery
PROC: (CPT 64721; principal; 2023-01-13 08:30)
PROC: (CPT 26055; 2023-01-13 08:30)
DX: G56.02 Carpal tunnel syndrome, left upper limb (principal); M65.312 Trigger thumb, left thumb; F41.9 Anxiety disorder, unspecified; E78.00 Pure hypercholesterolemia, unspecified; Z79.82 Long term (current) use of aspirin; F12.90 Cannabis use, unspecified, uncomplicated; Z87.891 Personal history of nicotine dependence
CPT/HCPCS: 64721; 26055; A9270; J1100; J2250; J2405; J2704; J3010; J7120

== ENCOUNTER 2023-02-04 10:56 | Outpatient (CLI) | payer OTHER, SELFPAY ==
--- NOTE | ~2023-02-04 | XR_ITS ---
Clinical Indication: Cough PA and lateral views of the chest: Comparison: None Findings: The lungs are clear, without evidence of focal consolidation or pleural effusion. Cardiome diastinal silhouette is within normal limits. Bones and soft tissues are unremarkable. Impression: Normal chest. Reviewed, dictated and finalized at location . Impression: Normal chest.
--- NOTE | ~2023-02-04 | XR_ITS ---
Left wrist Technique: PA and lateral views were obtained. Clinical History: Pain Findings: No acute fracture or dislocation is seen. Osseous alignment is anatomic. Joint spaces are p reserved. Soft tissues are unremarkable. Impression: Unremarkable left wrist radiographs. Reviewed, dictated and finalized at location M. Impression: Unremarkable left wrist radiographs.
== END 2023-02-04 10:57 | disposition home or self-care (01) ==
LOC: ANHIMG 11:00
PROVIDERS: PCP Internal Medicine; Visit Provider Clinical Nurse Specialist
DX: R05.9 Cough, unspecified (principal); M25.532 Pain in left wrist
CPT/HCPCS: 71046; 73100

== ENCOUNTER 2023-04-12 09:46 | Outpatient (CLI) | payer OTHER, SELFPAY ==
--- NOTE | ~2023-04-12 | NM_ITS ---
EXAMINATION: NM stress w perf spect multi DATE: 04/12/2023 12:46 INDICATION: Chest pain. Dyspnea. TECHNIQUE: Rest images were obtained following intravenous administration of 9.7 mCi Tc99m tetrofosmi n ([employer]). The patient performed an exercise activity. At peak exercise, 30.8 mCi Tc99m tetrofosmin ([employer]) was administered intravenously, and stress images were obtained. Data was reconstructed in to short axis and horizontal and vertical long axis SPECT images. Gated SPECT images were also obtain ed. COMPARISON: Chest CT 04/12/2023 FINDINGS: There is no definite reversible or fixed perfusion abnormality to suggest ischemia or infar ction. There is no segmental wall motion abnormality. Left ventricular ejection fraction measures > 70%. IMPRESSION: 1. No definite ischemia or infarct. 2. Normal left ventricular ejection fraction measuring >70%. Reviewed, dictated and finalized at location A.
--- NOTE | ~2023-04-12 | CT_ITS ---
CT Scan of the Chest without Contrast: Clinical Indication: Dyspnea Technique: Contiguous sections were acquired throughout the chest without intravenous contrast. Dose reduction technique was used on this scan by utilizing automated exposure control and iterative recon struction technique. The dose-length product (DLP) was 125.72 mGy-cm. Findings: There is no evidence of any significant mediastinal, hilar or axillary lymphadenopathy. The mediastin al soft tissues appear normal. There is no evidence of pleural or pericardial effusion. The lungs are clear. No pulmonary nodules or infiltrates are noted. Images through the upper abdomen reveal no abnormalities. Impression: No significant abnormalities seen. Reviewed, dictated and finalized at location . Impression: No significant abnormalities seen.
--- NOTE | 2023-04-12 09:55 | ECHO_ITS ---
Patient Info Name: Marie Castro Age: 52 years : 1970 Gender: Female Ht: 60 in Wt: 108 lbs BSA: 1.44 m2 HR: 66 bpm BP: 162 / 92 mmHg Heart Rhythm: Sinus Rhythm Exam Date: 04/12/2023 10:15 AM Exam Location: [facility] Pulmonary Patient Status: Outpatient Admit Date: 04/12/2023 Staff Ordering Physician: An Griffin Director Government: Oanh Mao RDCS Attending Provider: An Griffin Referring Physician: Elias YUEN; Exam Type: CA echo doppler color flow Study Info Indications R07.9 - Chest pain, unspecified Complete two-dimensional, color flow and Doppler transthoracic echocardiogram is performed. Summary 1. Complete two-dimensional, color flow and Doppler transthoracic echocardiogram is performed. 2. Left ventricular chamber dimension is normal. 3. Left ventricular systolic function is normal, estimated at 60-65%. 4. The left ventricular diastolic function is grade I diastolic dysfunction. 5. E/e' 7 is not elevated. 6. There is trace mitral valve regurgitation. 7. There is mild tricuspid valve regurgitation. 8. No pulmonary hypertension, estimated pulmonary arterial systolic pressure is 23 mmHg. Left Ventricle E/e' 7 is not elevated. Left ventricular chamber dimension is normal. Left ventricular systolic function is normal, estimated at 60-65%. The left ventricular diastolic function is grade I diastolic dysfunction. Right Ventricle Right ventricular systolic function is normal and with normal TAPSE 2.1 cm. Right ventricular chamber dimension is normal. Left Atria Left atrial chamber dimension is normal. Right Atria Right atrial chamber dimension is normal. Aortic Valve The aortic valve is trileaflet. There is no aortic valve stenosis. There is no aortic valve regurgitation. Pulmonic Valve There is no pulmonic regurgitation. Mitral Valve There is no mitral valve stenosis. There is trace mitral valve regurgitation. Tricuspid Valve There is mild tricuspid valve regurgitation. No pulmonary hypertension, estimated pulmonary arterial systolic pressure is 23 mmHg. Pericardium/Pleural There is no pericardial effusion. Inferior Vena Cava Normal inferior vena cava with >50% collapse upon inspiration consistent with normal right atrial pressure, 5 mmHg. Aorta The aortic root size at the sinus of Valsalva is normal. Left Ventricular Outflow Tract Name Value Normal LVOT 2D LVOT Diameter 1.8 cm LVOT Doppler LVOT Peak Gradient 3 mmHg LVOT Mean Gradient 2 mmHg LVOT VTI 22 cm LVOT VTI/AV VTI Ratio 0.6 LVOT Stroke Volume 59 ml LVOT CO 3.6 l/min LVOT CI 2.5 l/min/m2 Pulmonic Valve Name Value Normal PV Doppler PV Peak Gradient 4 mmHg Mitral Valve
--- NOTE | 2023-04-12 09:55 | EST_ITS ---
Patient Info Name: Marie Castro Age: 52 years : 1970 Gender: Female Ht: 60 in Wt: 108 lbs BSA: 1.44 m2 HR: 64 bpm BP: 162 / 83 mmHg Heart Rhythm: Sinus Rhythm Exam Date: 04/12/2023 12:03 PM Exam Location: [facility] Stress Patient Status: Outpatient Admit Date: 04/12/2023 Staff Ordering Physician: An Griffin Attending Provider: An Griffin Exercise Technologist: Carmela Faulkner CT Exercise Physician: Devonte Segal DO Exam Type: CA stress test treadmill w NM Study Info Indications R07.9 - Chest pain, unspecified A nuclear stress test was performed. Summary 1. 1. Negative Miky exercise stress test for ischemic ST changes by ECG criteria. 2. 2. Good functional capacity, achieving 11 METs of workload. 3. 3. Appropriate HR response to exercise. 4. 4. Appropriate HR recovery at 1 minute post exercise. 5. 5. Nuclear scan to follow and will be reported separately. Please correlate with it. 6. 6. Patient informed of the above results. Protocol: Miky Stress ECG Details Stage: REST Duration (min): 2 min : 14 sec Speed (mph): 0.0 Grade (%): 0 HR (bpm): 67 SBP (mmHg): 162 DBP (mmHg): 83 METS: --- Stage: REST Duration (min): 2 min : 48 sec Speed (mph): 0.0 Grade (%): 0 HR (bpm): 77 SBP (mmHg): 162 DBP (mmHg): 83 METS: --- Stage: STAGE 1 Duration (min): 1 min : 0 sec Speed (mph): 1.7 Grade (%): 10 HR (bpm): 89 SBP (mmHg): 162 DBP (mmHg): 83 METS: --- Stage: STAGE 1 Duration (min): 2 min : 0 sec Speed (mph): 1.7 Grade (%): 10 HR (bpm): 95 SBP (mmHg): 162 DBP (mmHg): 83 METS: --- Stage: STAGE 1 Duration (min): 3 min : 0 sec Speed (mph): 1.7 Grade (%): 10 HR (bpm): 101 SBP (mmHg): 170 DBP (mmHg): 93 METS: --- Stage: STAGE 2 Duration (min): 1 min : 0 sec Speed (mph): 2.5 Grade (%): 12 HR (bpm): 105 SBP (mmHg): 170 DBP (mmHg): 93 METS: --- Stage: STAGE 2 Duration (min): 2 min : 0 sec Speed (mph): 2.5 Grade (%): 12 HR (bpm): 115 SBP (mmHg): 183 DBP (mmHg): 90 METS: --- Stage: STAGE 2 Duration (min): 3 min : 0 sec Speed (mph): 2.5 Grade (%): 12 HR (bpm): 121 SBP (mmHg): 183 DBP (mmHg): 90 METS: --- Stage: STAGE 3 Duration (min): 1 min : 0 sec Speed (mph): 3.4 Grade (%): 14 HR (bpm): 133 SBP (mmHg): 186 DBP (mmHg): 88 METS: --- Stage: STAGE 3 Duration (min): 2 min : 0 sec Speed (mph): 3.4 Grade (%): 14 HR (bpm): 139 SBP (mmHg): 186 DBP (mmHg): 88 METS: --- Stage: STAGE 3 Duration (min): 3 min : 0 sec Speed (mph): 3.4 Grade (%): 14 HR (bpm): 141 SBP (mmHg): 168 DBP (mmHg): 105 METS: --- Stage: STAGE 4 Duration (min): 0 min : 35 sec Speed (mph): 4.2 Grade (%): 16 HR (bpm): 156 SBP (mmHg): 168 DBP (mmHg): 105 METS: --- Stage: RECOVERY Duration (min): 0 min : 24 sec Speed (mph): 0.0 Grade (%): 0 HR
== END 2023-04-12 09:47 | disposition home or self-care (01) ==
PROVIDERS: PCP Internal Medicine; Visit Provider Clinical Nurse Specialist
DX: R06.09 Other forms of dyspnea (principal); R07.9 Chest pain, unspecified; M25.539 Pain in unspecified wrist; I36.1 Nonrheumatic tricuspid (valve) insufficiency
CPT/HCPCS: 71250; 78452; 93017; 93306; A9502

== ENCOUNTER 2023-08-09 14:50 | Outpatient (CLI) | payer OTHER, SELFPAY ==
[2023-08-09 15:27] LABS: Basophils Absolute Auto 0.1 K/mm3 (0.0-0.1); Eosinophils Absolute Auto 0.2 K/mm3 (0-0.3); Eosinophils Percent Auto 2.7 % (0-4.4); Hematocrit 40.9 % (37.0-47.0); Hemoglobin 13.7 g/dL (12.0-15.0); Immature Granulocyte Absolute 0.03 K/mm3 (0.00-0.031); Immature Granulocyte Percent A 0.4 % (0-0.5); Lymphocytes Absolute Auto 2.37 K/mm3 (0.9-3.2); Lymphocytes Percent Auto 33.6 % (18.3-44.2); Mean Corpuscular HGB Conc 33.5 g/dl (32-36); Mean Corpuscular Volume 86.5 fl (80-100); Mean Platelet Volume 10.9 fl (7.4-10.4); Monocytes Absolute Auto 0.6 K/mm3 (0.1-0.6); Monocytes Percent Auto 7.9 % (2.6-8.5); Neutrophils Absolute Auto 3.8 K/mm3 (1.3-6.7); Neutrophils Percent Auto 54.4 % (45.5-73.1); Platelet Count Result 214 k/mm3 (150-375); Red Blood Count 4.73 M/mm3 (4.2-5.4); Red Cell Distribution Width 12.8 % (11.5-14.5); White Blood Count 7.1 K/mm3 (4.5-10.0)
[2023-08-09 15:36] LABS: Alanine Aminotransferase 20 U/L (6-35); Albumin Level 4.8 g/dL (3.5-5.1); Alkaline Phosphatase 51 U/L (38-126); Amylase 82 U/L (30-110); Anion Gap 11 mmol/L (8-16); Aspartate Amino Transferase 26 U/L (14-36); Bilirubin,Total 0.6 mg/dL (0.2-1.3); Blood Urea Nitrogen 12 mg/dL (7-17); Calcium 9.2 mg/dL (8.4-10.2); Carbon Dioxide 30 mmol/L (22-30); Chloride 100 mmol/L (98-107); Estimated Glomerular Filt Rate > 60; Glucose 85 mg/dL (65-110); Lipase 106 U/L (23-300); Sodium 141 mmol/L (137-145)
[2023-08-09 16:20] LABS: Hemoglobin A1C 5.1 % (<5.7)
[2023-08-13 04:49] LABS: Thyroid Peroxidase Antibodies 270 IU/mL (<9)
== END 2023-08-09 14:51 | disposition home or self-care (01) ==
LOC: ANHLAB 14:52
PROVIDERS: PCP Internal Medicine; Visit Provider Clinical Nurse Specialist
DX: R10.9 Unspecified abdominal pain (principal); R73.9 Hyperglycemia, unspecified; E03.9 Hypothyroidism, unspecified
CPT/HCPCS: 36415; 80053; 82150; 83036; 83690; 84443; 85025; 86376

== ENCOUNTER 2023-11-22 11:34 | Outpatient (CLI) | payer OTHER, SELFPAY ==
[2023-11-22 12:44] LABS: Vitamin D 25 Hydroxy 27.2 ng/mL
[2023-11-22 13:10] LABS: Anion Gap 6 mmol/L (8-16); Blood Urea Nitrogen 19 mg/dL (7-17); Carbon Dioxide 28 mmol/L (22-30); Chloride 106 mmol/L (98-107); Cholesterol 250 mg/dL (0-200); Estimated Glomerular Filt Rate > 60; Glucose 106 mg/dL (65-110); Potassium 4.6 mmol/L (3.4-5.0); Sodium 140 mmol/L (137-145)
[2023-11-22 13:14] LABS: LDL Cholesterol Direct 82 mg/dL; Triglycerides 698 mg/dL (<150)
== END 2023-11-22 11:35 | disposition home or self-care (01) ==
LOC: ANHLAB 11:38
PROVIDERS: PCP Internal Medicine; Visit Provider Clinical Nurse Specialist
DX: E55.9 Vitamin D deficiency, unspecified (principal); E78.00 Pure hypercholesterolemia, unspecified
CPT/HCPCS: 36415; 80048; 80061; 82306

== ENCOUNTER 2023-11-23 12:12 | Outpatient (CLI) | payer OTHER, SELFPAY ==
[2023-11-23 13:47] LABS: Hemoglobin A1C 5.5 % (<5.7)
[2023-11-23 13:53] LABS: Free T4 Free Thyroxine 1.08 ng/mL (0.78-2.19)
[2023-11-25 14:46] LABS: Thyrotropin Receptor Antibody <1.00 IU/L (<=2.00)
[2023-11-26 14:44] LABS: Thyroid Stimulating Immunoglob <89 % baseline (<140)
== END 2023-11-23 12:13 | disposition home or self-care (01) ==
LOC: ANHLAB 12:13
PROVIDERS: PCP Internal Medicine; Visit Provider Internal Medicine
DX: R76.8 Other specified abnormal immunological findings in serum (principal); E06.3 Autoimmune thyroiditis
CPT/HCPCS: 36415; 82607; 83036; 83519; 84439; 84443; 84445

== ENCOUNTER 2023-11-24 12:52 | Outpatient (CLI) | payer OTHER, SELFPAY ==
--- NOTE | ~2023-11-24 | US_ITS ---
EXAMINATION: US thyroid DATE: 11/24/2023 13:42 INDICATION: Other specified abnormal immunological findings. Hypothyroidism. TECHNIQUE: Multiple ultrasound images of the thyroid were obtained. COMPARISON: Ultrasound 05/12/2022 FINDINGS: The right thyroid lobe measures 3.8 x 1.1 x 1.2 cm. The left thyroid lobe measures 3.5 x 0.7 x 1.1 c m. The thyroid demonstrates coarsened echotexture and increased vascularity. No discrete nodule. IMPRESSION: 1. Coarsened echotexture and increased vascularity, consistent with chronic lymphocytic (Mally) t hyroiditis. Reviewed, dictated and finalized at location A. OPERATIONS MANAGER IMPRESSION: 1. Coarsened echotexture and increased vascularity, consistent with chronic lym phocytic (Mally) thyroiditis.
== END 2023-11-24 12:53 | disposition home or self-care (01) ==
PROVIDERS: PCP Internal Medicine; Visit Provider Internal Medicine
DX: R76.8 Other specified abnormal immunological findings in serum (principal); E06.3 Autoimmune thyroiditis
CPT/HCPCS: 76536

== ENCOUNTER 2024-06-05 09:48 | Outpatient (CLI) | payer OTHER, SELFPAY ==
[2024-06-05 10:17] LABS: Basophils Absolute Auto 0.1 K/mm3 (0.0-0.1); Basophils Percent Auto 0.9 % (0.2-1.2); Eosinophils Absolute Auto 0.3 K/mm3 (0-0.3); Eosinophils Percent Auto 4.1 % (0-4.4); Hematocrit 42.2 % (37.0-47.0); Hemoglobin 14.2 g/dL (12.0-15.0); Immature Granulocyte Absolute 0.01 K/mm3 (0.00-0.031); Immature Granulocyte Percent A 0.2 % (0-0.5); Lymphocytes Absolute Auto 2.08 K/mm3 (0.9-3.2); Lymphocytes Percent Auto 32.8 % (18.3-44.2); Mean Corpuscular HGB Conc 33.6 g/dl (32-36); Mean Corpuscular Hemoglobin 29.2 pg (26-34); Mean Corpuscular Volume 86.8 fl (80-100); Monocytes Absolute Auto 0.5 K/mm3 (0.1-0.6); Monocytes Percent Auto 7.3 % (2.6-8.5); Neutrophils Absolute Auto 3.5 K/mm3 (1.3-6.7); Neutrophils Percent Auto 54.7 % (45.5-73.1); Platelet Count Result 208 k/mm3 (150-375); Red Blood Count 4.86 M/mm3 (4.2-5.4); Red Cell Distribution Width 12.9 % (11.5-14.5); White Blood Count 6.3 K/mm3 (4.5-10.0)
[2024-06-05 10:40] LABS: Alanine Aminotransferase 18 U/L (6-35); Albumin Level 4.7 g/dL (3.5-5.1); Alkaline Phosphatase 64 U/L (38-126); Anion Gap 8 mmol/L (4-12); Aspartate Amino Transferase 27 U/L (14-36); Bilirubin,Total 0.6 mg/dL (0.2-1.3); Blood Urea Nitrogen 19 mg/dL (7-17); Calcium 9.2 mg/dL (8.4-10.2); Carbon Dioxide 28 mmol/L (22-30); Chloride 103 mmol/L (98-107); Estimated Glomerular Filt Rate > 60; Glucose 101 mg/dL (65-110); Sodium 139 mmol/L (137-145)
[2024-06-05 11:13] LABS: Free T4 Free Thyroxine 0.85 ng/mL (0.78-2.19)
[2024-06-05 11:21] LABS: Cholesterol 306 mg/dL (0-200)
[2024-06-05 11:39] LABS: LDL Cholesterol Direct 62 mg/dL
[2024-06-05 13:06] LABS: Triglycerides 855 mg/dL (<150)
== END 2024-06-05 09:49 | disposition home or self-care (01) ==
PROVIDERS: PCP Clinical Nurse Specialist; Visit Provider Internal Medicine
DX: E78.1 Pure hyperglyceridemia (principal); Z87.19 Personal history of other diseases of the digestive system; E03.9 Hypothyroidism, unspecified
CPT/HCPCS: 36415; 80053; 80061; 84439; 84443; 85025